=== PATIENT | female | born 1965 ===

== ENCOUNTER 2024-06-30 06:41 | Day surgery (SDC) | payer OTHER ==
[2024-06-23 10:43] VITALS: BP 143/98
[~2024-06-30] VITALS: Ht 180.3 cm; Wt 129.3 kg
[~2024-06-30 06:41] MED LIST: AMLODIPINE-OLM1 EAC2 PO; HYZAAR 100-12.1 EACH PO; KAPSPARGO SPRI100 MG PO; VITAMIN D3125 MC1
[2024-06-30] MEDS ORDERED: POVIDONE-IODINE 118 ML BOTT TOP ONE (08:48)
[2024-06-30] MEDS ORDERED: IBU600 MG PO (09:37)
[2024-06-30] MEDS ORDERED: ENALAPRILAT DIHYDRATE 1.25 MG/ML VIAL IV ONE ×3 (09:58→10:35)
== END 2024-06-30 13:15 | disposition home or self-care (01) ==
LOC: CIR.AMB 06:41
PROVIDERS: ATTEND Obstetrics & Gynecology Gynecology
DX: N84.0 Polyp of corpus uteri (principal); N95.0 Postmenopausal bleeding